=== PATIENT | female | born 1980 | race Caucasian/White ===

== ENCOUNTER 2022-09-02 16:51 | Outpatient (CLI) | payer OTHER, SELFPAY ==
[2022-09-02 13:58] LABS: Cholesterol* 179 mg/dL (90-199); Glucose* 91 mg/dL (60-115); Triglycerides* 49 mg/dL (40-149)
[2022-09-02 13:59] LABS: HDL Cholesterol* 91 mg/dL (>=50); LDL Cholesterol Calculated 78 mg/dL (<100)
== END 2022-09-02 16:52 | disposition home or self-care (01) ==
PROVIDERS: PCP Emergency Medicine; Visit Provider Emergency Medicine
DX: Z00.00 Encounter for general adult medical examination without abnormal findings (principal); Z13.6 Encounter for screening for cardiovascular disorders; Z13.1 Encounter for screening for diabetes mellitus
CPT/HCPCS: 80061; 82947

== ENCOUNTER 2022-09-30 18:14 | Outpatient (CLI) | payer OTHER, SELFPAY ==
--- NOTE | 2022-09-30 18:30 | CRLHL7_ITS ---
For Patients: As a result of the Century Cures Act, medical imaging exams and procedure reports are released immediately into your electronic medical record. You may view this report before your referring provider. If you have questions, please contact your health care provider. BILATERAL SCREENING MAMMOGRAM WITH COMPUTER-AIDED DETECTION AND TOMOSYNTHESIS TECHNIQUE: CC and MLO views were obtained. These mammographic images have been obtained using full-field digital technique. These mammographic images were interpreted with the benefit of computer-aided detection. Breast Tomosynthesis was used in this interpretation. COMPARISON FILM: 01/28/21. FINDINGS: There are scattered areas of fibroglandular density IMPRESSION: There is no radiographic evidence for malignancy. ASSESSMENT: BI-RADS Category 1: Negative RECOMMENDATION: Routine screening mammogram in 1 year. A lay language report of this examination will be provided to the patient. Jhon Park M.D. Diagnostic Radiologist [email or web address] Transcribed: 4:03 [email or web address] prescott/Dictated by: Jhon Park MD @ 10/01/2022 9:00:00 AM (Electronically Signed)
== END 2022-09-30 18:15 | disposition home or self-care (01) ==
LOC: MAMMO 18:15
PROVIDERS: PCP Emergency Medicine; Visit Provider Emergency Medicine
DX: Z12.31 Encounter for screening mammogram for malignant neoplasm of breast (principal)
CPT/HCPCS: 77063; 77067

== ENCOUNTER 2024-10-10 18:19 | Outpatient (CLI) | payer OTHER, SELFPAY ==
[2024-10-12 13:47] LABS: HPV Source Cervix; HPV, High Risk by TMA Not Detected
== END 2024-10-10 18:20 | disposition home or self-care (01) ==
PROVIDERS: PCP Emergency Medicine; Visit Provider Physician Assistant
DX: Z12.4 Encounter for screening for malignant neoplasm of cervix (principal); Z11.51 Encounter for screening for human papillomavirus (HPV)
CPT/HCPCS: 87624; 87625; 88141; 88142

== ENCOUNTER 2024-11-07 12:55 | Outpatient (CLI) | payer OTHER, SELFPAY | END 2024-11-07 12:56 | disposition home or self-care (01) | LOC: MAMMO 12:56 | PROVIDERS: PCP Emergency Medicine; Visit Provider Physician Assistant | DX: Z12.31 Encounter for screening mammogram for malignant neoplasm of breast (principal) | CPT/HCPCS: 77063; 77067 ==